=== PATIENT | female | born 1950 | race African-American/Black ===

== ENCOUNTER 2019-02-08 11:04 | Emergency (ER) | payer MEDICARE, OTHER ==
[2019-02-08 11:36] VITALS: BP 159/98
--- NOTE | 2019-02-08 12:42 | UC ---
Hand/Wrist HPI - HPI Summary HPI Summary: 69-year-old woman comes in with a chief complaint of right hand and wrist pain. But 2 days ago patient was inflating a large [place] to put in her pool and she started having right hand and wrist pain after that time. The pain is worst at the base of the second metacarpal. There is as swollen area there that's tender to palpation. Pain is worse with movement and gripping with the hand. No weakness or numbness. - History Of Current Complaint Chief Complaint: UCUpperExtremity Stated Complaint: R HAND PAIN Time Seen by Provider: 02/08/19 11:50 Pain Intensity: 5 - Allergies/Home Medications Allergies/Adverse Reactions: Allergies Allergy/AdvReac Type Severity Reaction Status Date / Time No Known Allergies Allergy Verified 02/08/19 11:37 PMH/Surg Hx/FS Hx/Imm Hx Previously Healthy: Yes Endocrine History: Dyslipidemia Cardiovascular History: Hypertension Neurological History: TIA - Surgical History Surgical History: Yes Surgery Procedure, Year, and Place: Pacemaker - Family History Known Family History: Positive: Non-Contributory - Social History Alcohol Use: None Substance Use Type: None Smoking Status (MU): Never Smoked Tobacco - Immunization History Most Recent Influenza Vaccination: 2013 Most Recent Tetanus Shot: unknown Most Recent Pneumonia Vaccination: 2013 Review of Systems All Other Systems Reviewed And Are Negative: Yes Constitutional: Positive: Negative Skin: Positive: Negative Eyes: Positive: Negative ENT: Positive: Negative Respiratory: Positive: Negative Cardiovascular: Positive: Negative Gastrointestinal: Positive: Negative Motor: Positive: Negative Neurovascular: Positive: Negative Musculoskeletal: Positive: Other: - SEE HPI Neurological: Positive: Negative Psychological: Positive: Negative Is Patient Immunocompromised?: No Physical Exam Triage Information Reviewed: Yes Appearance: Well-Appearing, No Pain Distress, Well-Nourished Vital Signs: Initial Vital Signs Temp 97.7 F 02/08/19 11:34 Pulse 90 02/08/19 11:34 Resp 12 02/08/19 11:34 BP 159/98 02/08/19 11:34 Pulse Ox 99 02/08/19 11:34 Vital Signs Reviewed: Yes Eye Exam: Normal Eyes: Positive: Conjunctiva Clear Neck: Positive: Supple Respiratory: Positive: No respiratory distress Musculoskeletal: Positive: Other: - There is some firm swelling and tenderness at the base of the right second metacarpal. Fingers have full range of motion thumb has full range of motion wrists is full range of motion. Is also some tenderness over the distal radius laterally. Neurological: Positive: Alert, Muscle Tone Normal Psychological: Positive: Age Appropriate Behavior Skin Exam: Normal Hand/Wrist Course/Dx - Course Course Of Treatment: Patient Name: KATHY JARRETT Medical Record#: [id number] Ordering Physician: Sebastien Alcaraz MD Acct.#: [id number] : 1950 Age: 69 Sex: F Location: [facility] Exam Date: 02/08/19 1150 ADM Status: REG ER Order Information: HAND - RIGHT MINIMUM 3 VIEWS Accession Number: [id number] CPT: 24842 Indication: Right hand pain. 4 views of the right hand demonstrates no fracture. Degenerative changes of the interphalangeal joint of the thumb is noted. Degenerative changes of the interphalangeal joint of the proximal and distal interphalangeal joints of the second through fifth digit is noted. There are degenerative changes of the first carpal metacarpal joint noted. 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 <Electronically signed by Lynne Moss MD in [place]> 02/08/19 1214 I discussed the x-rays with the patient.. Degenerative changes in the metacarpocarpal joints. Patient reports the pain started after gripping an item for a extended period of time. Plan is ibuprofen and ice thumb spica splint and follow-up with sports medicine or orthopedics. - Differential Dx/Diagnosis Provider Diagnosis: Hand pain, right Discharge - Sign-Out/Discharge Documenting (check all that apply): Patient Departure All imaging exams completed and their final reports reviewed: Yes - Discharge Plan Condition: Stable Disposition: HOME Patient Education Materials: Tendinitis (ED) Referrals: Deanne Stewart MD [Primary Care Provider] - Joyce Simon MD [Medical Doctor] - [facility] [Provider Group] Additional Instructions: FOLLOW UP WITH DR SIMON, ORTHOPEDICS, OR SPORTS MEDICINE. TAKE IBUPROFEN 600MG EVERY 6 HOURS NEEDED. ICE THE AREA OF PAIN. DECREASE USE OF YOUR RIGHT HAND AND WEAR THE SPLINT. GET RECHECKED SOONER IF YOUR CONDITION WORSENS OR ANY QUESTIONS OR CONCERNS. - Billing Disposition and Condition Condition: STABLE Disposition: Home
== END 2019-02-08 13:09 | disposition home or self-care (01) ==
LOC: UCEAST 11:04
DX: M25.531 Pain in right wrist (principal); M79.641 Pain in right hand; E78.5 Hyperlipidemia, unspecified; I10 Essential (primary) hypertension; Z86.73 Personal history of transient ischemic attack (TIA), and cerebral infarction without residual deficits; Z95.0 Presence of cardiac pacemaker
CPT/HCPCS: 99212; G0463